=== PATIENT | male | born 1965 | race Caucasian/White ===

== ENCOUNTER 2021-02-20 02:16 | Emergency (ER) | payer MEDICAID ==
[~2021-02-20] VITALS: Ht 185.4 cm; Wt 89.8 kg
--- NOTE | 2021-02-20 02:21 | NUR ---
Pt came in with c/o left ankle wound for check. A/O x4
--- NOTE | 2021-02-20 02:23 | NUR ---
Dr. Mabry at bedside, MSE in progress.
[2021-02-20] MEDS ORDERED: TDAP DIPH,PERTUSS,TET VAC/PF 0.5 ML DISP.SYRIN IM ONE ×2 (02:30→02:47)
[2021-02-20] MEDS ORDERED: MUPIROCIN 2% OINT 22 GM TUBE TP ONE (02:30)
[2021-02-20] MEDS ORDERED: SULFAMETH/TRIMETH 800/160 MG TABLET PO ONE (02:30)
[2021-02-20] MEDS ORDERED: HYDR-3980 PO (02:32)
[2021-02-20] MEDS ORDERED: HYDROCODONE/APAP 10-325 MG TABLET PO ONE (02:45)
[2021-02-20] MEDS ORDERED: SULFAMETH/TRIMETH 800/160 MG TABLET ONE (02:47)
[2021-02-20] MEDS ORDERED: HYDROCODONE/APAP 10-325 MG TABLET ONE (02:47)
[2021-02-20] MEDS ORDERED: MUPIROCIN 2% OINT 22 GM TUBE ONE (02:47)
--- NOTE | 2021-02-20 02:56 | NUR ---
Patient discharged to home in stable condition. A/O x4, no SOB or labored breathing, no c/o pain/discomfort. Written and verbal after care instructions given. Patient verbalizes understanding of instructions. Stressed follow up or return to ER for worsening s/s.
[2021-02-20 02:58] VITALS: BP 118/70
== END 2021-02-20 02:59 | disposition home or self-care (01) ==
LOC: ER 02:18
DX: S80.922A Unspecified superficial injury of left lower leg, initial encounter (principal); L08.9 Local infection of the skin and subcutaneous tissue, unspecified; W26.8XXA Contact with other sharp object(s), not elsewhere classified, initial encounter; Y92.89 Other specified places as the place of occurrence of the external cause; Z86.718 Personal history of other venous thrombosis and embolism; Z86.711 Personal history of pulmonary embolism; F17.210 Nicotine dependence, cigarettes, uncomplicated; J45.909 Unspecified asthma, uncomplicated; K21.9 Gastro-esophageal reflux disease without esophagitis
CPT/HCPCS: 90715; A4663